=== PATIENT | female | born 1985 | race Caucasian/White ===

== ENCOUNTER 2019-06-27 11:32 | Emergency (ER) | payer MEDICAID ==
[~2019-06-27] VITALS: Ht 165.1 cm; Wt 54.4 kg
--- NOTE | 2019-06-27 11:38 | NUR ---
came in for midsternal chest pain, non radiating s/p inhaling chemical peel yesterday, to er bed 10, hooked to vehicle monitor technician, changed to hosp gown, warm blabket provided, awaiting md cano
--- NOTE | 2019-06-27 11:50 | NUR ---
DR HUTSON AT BEDSIDE
[2019-06-27 12:40] VITALS: BP 132/67
--- NOTE | 2019-06-27 12:40 | NUR ---
Patient discharged to home in stable condition. Written and verbal after care instructions given. Patient verbalizes understanding of instruction.
== END 2019-06-27 12:44 | disposition home or self-care (01) ==
LOC: ER 11:36
DX: J68.0 Bronchitis and pneumonitis due to chemicals, gases, fumes and vapors (principal); R07.89 Other chest pain
CPT/HCPCS: 71045-TC

== ENCOUNTER 2019-08-26 01:33 | Emergency (ER) | payer MEDICAID ==
[~2019-08-26] VITALS: Ht 157.5 cm; Wt 60.8 kg
--- NOTE | 2019-08-26 01:40 | NUR ---
PT BIBS FOR C/O DIZZINESS AND LOW BP FOR THE PAST WEEK. -NV. PT AAOX4, VSS, RESPIRATIONS EVEN AND UNLABORED ON RA W/ NAD NOTED. PT CONNECTED TO THE IDENTIFICATION TECHNICIAN AND POX.
--- NOTE | 2019-08-26 01:47 | NUR ---
AT THE BED SIDE
[2019-08-26] MEDS ORDERED: IV NS 0.9% 1,000 ML BAG IV ONE (02:00)
--- NOTE | 2019-08-26 02:03 | NUR ---
BLOOD COLLECTED AND SENT TO LAB
--- NOTE | 2019-08-26 02:03 | NUR ---
URINE COLLECTED AND SENT TO LAB
[2019-08-26 02:10] LABS: BASOPHILS % (AUTO) 0.4 % (0.0-2.0); EOSINOPHILS % (AUTO) 1.1 % (0.0-6.0); HEMATOCRIT 42 % (33-45); HEMOGLOBIN 14.3 g/dL (11.5-14.8); LYMPHOCYTES # (AUTO) 2.9 /CMM (0.8-4.8); LYMPHOCYTES % (AUTO) 44.6 % (20.0-44.0); MEAN CORPUSCULAR HGB CONC 34 g/dl (31.0-36.0); MEAN CORPUSCULAR VOLUME 87 fL (82-100); MONOCYTES # (AUTO) 0.4 /CMM (0.1-1.30); MONOCYTES % (AUTO) 6.4 % (2.0-12.0); NEUTROPHILS # (AUTO) 3.1 /CMM (1.8-8.9); NEUTROPHILS % (AUTO) 47.5 % (43.0-81.0); PLATELET COUNT (AUTO) 316 /CMM (150-450); RED BLOOD CELL COUNT(AUTO) 4.85 MIL/uL (4.0-5.2); WHITE BLOOD COUNT (AUTO) 6.5 K/uL (4.3-11.0)
[2019-08-26 02:17] LABS: CALCIUM, SERUM 9.1 mg/dL (8.5-10.1); CREATININE 0.8 mg/dL (0.6-1.3); POTASSIUM 3.7 mmol/L (3.5-5.1)
--- NOTE | 2019-08-26 02:59 | NUR ---
Patient discharged to home in stable condition. Written and verbal after care instructions given. Patient verbalizes understanding of instruction.
--- NOTE | 2019-08-26 02:59 | NUR ---
IV removed. Catheter intact and site benign. Pressure and 4x4 applied to site. No bleeding noted.
[2019-08-26 03:00] VITALS: BP 119/76
== END 2019-08-26 03:00 | disposition home or self-care (01) ==
LOC: ER 01:34
DX: R42 Dizziness and giddiness (principal); G43.909 Migraine, unspecified, not intractable, without status migrainosus
CPT/HCPCS: 36415; 80048; 84703; 85025; 93005; 96360; 99284; J7030

== ENCOUNTER 2022-02-21 18:04 | Emergency (ER) | payer MEDICAID ==
[~2022-02-21] VITALS: Ht 157.5 cm; Wt 56.7 kg
[2022-02-21 18:51] VITALS: BP 111/76
--- NOTE | 2022-02-21 21:06 | NUR ---
CALLED PT TO THE ROOM X 3 . NO ANSWER
== END 2022-02-21 21:49 | disposition left against medical advice (07) ==
LOC: ER 18:20
DX: Z53.21 Procedure and treatment not carried out due to patient leaving prior to being seen by health care provider (principal)